=== PATIENT | male | born 1950 | race Caucasian/White ===

== ENCOUNTER 2022-03-12 17:31 | Inpatient (IN) | payer SELFPAY ==
[~2022-03-12] VITALS: Ht 172.7 cm; Wt 73.5 kg
[2022-03-12] MEDS ORDERED: IBUPROFEN 400MG TABLET PO ONE (19:30)
[2022-03-12] MEDS ORDERED: MORPHINE SULFATE 4 MG/ML CPJ (NOT FOR IM USE) IV STA (21:56)
[2022-03-12] MEDS ORDERED: ONDANSETRON HCL 4MG/2ML INJ IV STA (21:56)
[2022-03-12] MEDS ORDERED: SODIUM CHLORIDE 0.9% 1,000 ML IV ONE (22:00)
[2022-03-12 22:53] LABS: BASOPHILS % 0.1 % (0.0-2.0); CHLORIDE 104 mEq/L (98-107); EOSINOPHILS % 0.1 % (0.0-5.0); HEMATOCRIT. 38.7 % (42.0-52.0); HEMOGLOBIN. 12.8 g/dL (14.0-18.0); LYMPHOCYTES % 7.1 % (20.0-50.0); MEAN CORPUSCULAR HEMOGLOBIN 29.4 pg (28.0-32.0); MEAN CORPUSCULAR VOLUME 88.7 fL (80.0-94.0); MEAN PLATELET VOLUME 7.5 fl (7.4-10.4); MONOCYTES % 5.2 % (2.0-8.0); NEUTROPHILS % 87.5 % (40.0-76.0); PLATELET 173 x1000/uL (130-400); RED BLOOD CELL COUNT 4.36 mill/uL (4.7-6.1); RED CELL DISTRIBUTION WIDTH 15.1 % (11.6-14.6)
[2022-03-13] MEDS ORDERED: CEPH500C2 MT (00:20)
[2022-03-13] MEDS ORDERED: HYDROCODONE/ACETAMINOPHEN 5/325MG TABLET PO ONE (07:30)
[2022-03-13 10:00] VITALS: BP 100/53
[2022-03-13] MEDS ORDERED: ONDANSETRON HCL 4MG/2ML INJ IV PRN (11:00)
[2022-03-13] MEDS ORDERED: ACETAMINOPHEN 325MG TABLET PO PRN (11:00)
[2022-03-13] MEDS ORDERED: NALOXONE HCL 0.4MG/ML VIAL IV PRN (11:15)
[2022-03-13 12:00] VITALS: BP 96/50
[2022-03-13 14:43] VITALS: BP 129/58
[2022-03-13 16:00] VITALS: BP 98/50
[2022-03-13] MEDS ORDERED: PNEUMOCOCCAL 23-VAL P-SAC VAC 0.5 ML IM ONE (16:00)
[2022-03-13 20:00] VITALS: BP 92/53
[2022-03-14] VITALS: BP 118/63
[2022-03-14] MEDS: HYDROCODONE/ACETAMINOPHEN 10/325MG TABLET PO PRN ×3 (00:20→18:15)
[2022-03-14 04:00] VITALS: BP 111/71
[2022-03-14 08:00] VITALS: BP 106/65
[2022-03-14] MEDS ORDERED: HYDR-4001 MT (11:51)
[2022-03-14 12:00] VITALS: BP 112/62
[2022-03-14 16:00] VITALS: BP 112/63
[2022-03-14 20:00] VITALS: BP 114/67
[2022-03-15] VITALS: BP 116/68
[2022-03-15 04:00] VITALS: BP 116/61
[2022-03-15] MEDS: HYDROCODONE/ACETAMINOPHEN 10/325MG TABLET PO PRN ×2 (06:30→12:51)
[2022-03-15 08:00] VITALS: BP 102/65
[2022-03-15] MEDS: KETOROLAC 15MG/ML VIAL IV PRN ×2 (10:29→18:01)
[2022-03-15 12:00] VITALS: BP 111/58
[2022-03-15 16:00] VITALS: BP 105/62
[2022-03-15 17:50] LABS: BASOPHILS % 0.3 % (0.0-2.0); EOSINOPHILS % 1.5 % (0.0-5.0); HEMATOCRIT. 39.5 % (42.0-52.0); HEMOGLOBIN. 13.2 g/dL (14.0-18.0); LYMPHOCYTES % 16.4 % (20.0-50.0); MEAN CORPUSCULAR HEMOGLOBIN 29.8 pg (28.0-32.0); MEAN CORPUSCULAR VOLUME 89.4 fL (80.0-94.0); MEAN PLATELET VOLUME 7.1 fl (7.4-10.4); MONOCYTES % 8.7 % (2.0-8.0); NEUTROPHILS % 73.1 % (40.0-76.0); PLATELET 167 x1000/uL (130-400); RED BLOOD CELL COUNT 4.42 mill/uL (4.7-6.1); RED CELL DISTRIBUTION WIDTH 15.6 % (11.6-14.6)
[2022-03-15 18:08] LABS: CHLORIDE 103 mEq/L (98-107)
[2022-03-15 20:00] VITALS: BP 126/63
[2022-03-15 20:48] LABS: CLARITY URINE CLEAR (CLEAR); COLOR URINE DARK YELLOW (YELLOW); KETONES URINE TRACE (NEGATIVE); LEUKOCYTE ESTERASE URINE NEGATIVE (NEGATIVE); NITRITE URINE NEGATIVE (NEGATIVE); OCCULT BLOOD URINE NEGATIVE (NEGATIVE); PROTEIN URINE TRACE (NEGATIVE); SPECIFIC GRAVITY URINE 1.035 (1.005-1.030)
[2022-03-16] VITALS: BP 100/53
[2022-03-16 04:00] VITALS: BP 111/66
[2022-03-16] MEDS: HYDROCODONE/ACETAMINOPHEN 10/325MG TABLET PO PRN (05:55)
[2022-03-16 08:00] VITALS: BP 116/70
[2022-03-16] MEDS: KETOROLAC 15MG/ML VIAL IV PRN (08:52)
[2022-03-16 12:00] VITALS: BP 114/62
[2022-03-16 12:23] VITALS: BP 114/62
== END 2022-03-16 14:45 | disposition home or self-care (01) | DRG 341 ==
LOC: ER 17:31 → 6EST 03-13 08:38 → ENRESERV 03-13 09:08
PROVIDERS: ADMIT Internal Medicine; ATTEND Internal Medicine
DX: S32.591A Other specified fracture of right pubis, initial encounter for closed fracture (principal); D64.9 Anemia, unspecified; M17.11 Unilateral primary osteoarthritis, right knee; Z20.822 Contact with and (suspected) exposure to COVID-19; M76.40 Tibial collateral bursitis [Pellegrini-Stieda], unspecified leg; Z79.2 Long term (current) use of antibiotics; Y92.89 Other specified places as the place of occurrence of the external cause; Y99.8 Other external cause status; V18.4XXA Pedal cycle driver injured in noncollision transport accident in traffic accident, initial encounter; Y93.55 Activity, bike riding
CPT/HCPCS: 36415; 71045; 72170; 72192; 73080; 73552; 73560; 80048; 80053; 81003; 85025; 87426; 93005; 93970; 97116; 97161; 97162; 99285; J1885; J2270; J2405; J7030